=== PATIENT | male | born 1940 | race Caucasian/White ===

== ENCOUNTER 2023-03-13 09:25 | Emergency (ER) | payer MEDICARE, OTHER ==
[~2023-03-13] VITALS: Ht 175.3 cm; Wt 93.0 kg
[2023-03-13] MEDS ORDERED: ELIQUIS2.5 MG PO (09:43)
[2023-03-13 10:52] LABS: INFLUENZA B NAA NEGATIVE (NEGATIVE); RESPIRATORY SYNCYTIAL VIR NAA NEGATIVE (NEGATIVE)
[2023-03-13 11:26] LABS: BASOPHILS 0.3 % (0-2); EOSINOPHILS 0.5 % (0-6); HEMATOCRIT 39.9 % (35.0-50.0); LYMPHOCYTES 17.1 % (24-44); MCH 32.4 (27-36); MCHC 32.7 g/dl (30-36); MCV 99.1 fl (81-99); MONOCYTES 7.2 % (0-12); NEUTROPHILS 74.9 % (39-80); PLATELET COUNT 134 K/uL (140-440); RBC 4.02 M/ul (4.3-5.7)
[2023-03-13 11:35] LABS: ANION GAP 14.1 (7-21); BUN/CREATININE RATIO 17.97 (6.0-28.6); CREATININE, SERUM 0.89 mg/dL (0.70-1.30); POTASSIUM 4.1 mmol/L (3.5-5.1)
[2023-03-13] MEDS ORDERED: PAXLOVID 300-11 EACH PO (12:28)
[2023-03-13 12:45] VITALS: BP 148/67
== END 2023-03-13 12:53 | disposition home or self-care (01) ==
LOC: ED 09:25
PROVIDERS: Emergency Medicine
DX: U07.1 COVID-19 (principal); I10 Essential (primary) hypertension; Z79.01 Long term (current) use of anticoagulants; Z91.048 Other nonmedicinal substance allergy status
CPT/HCPCS: 36415; 80048; 85025; 87502; 99283; C9803; U0002

== ENCOUNTER 2023-03-27 12:48 | Emergency (ER) | payer OTHER, MEDICARE ==
[~2023-03-27] VITALS: Ht 175.3 cm; Wt 93.0 kg
[~2023-03-27 12:48] MED LIST: ELIQUIS2.5 MG PO; PAXLOVID 300-11 EACH PO
--- OUTSIDE RECORDS SUMMARY | 2023-03-27 12:57 | XMS ---
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 Tani has no Care Guidelines for this patient. Radha V[facility] COUNT (12 MO.) [facility] 2 NOTE: Visits indicate total known visits. ED/C VISIT TRACKING (12 MO.) [facility] [place] [facility] COMPLAINT: - CHEST PAIN, HEAVY COUGH 03/13/2023 09:26 [facility] [place] TYPE: Emergency COMPLAINT: - FLU SYMPTOMS DIAGNOSES: - COVID-19 - Essential (primary) hypertension - termite control representative (current) use of anticoagulants - Other malaise - Other nonmedicinal substance allergy status INPATIENT VISIT TRACKING (12 MO.) No inpatient visits to display in this time frame [email or web address]
[2023-03-27] MEDS ORDERED: VENTOLIN HFA18 GM INH (14:26)
[2023-03-27 14:36] VITALS: BP 106/52
--- NOTE | 2023-03-27 23:03 | EKG ---
[facility] [address] [facility] [place] [address] Signed Sinus rhythm with 1st degree AV block Right bundle branch block Left anterior fascicular block Bifascicular block Minimal voltage criteria for LVH, may be normal variant ( R in aVL ) Abnormal ECG No previous ECGs available Confirmed by Nina Palacio MD () on 03/27/2023 11:03:18 PM Electronically Signed By: NINA PALACIO MD 03/27/23 2303 PATIENT NAME: CASIE NUÑEZ Electrocardiogram DATE OF : 36 PHYSICIAN: NINA PALACIO MD REPORT #: [id number] REPORT IS CONFIDENTIAL AND NOT TO BE RELEASED WITHOUT AUTHORIZATION
== END 2023-03-27 14:30 | disposition home or self-care (01) ==
LOC: ED 12:48
DX: U07.1 COVID-19 (principal); J40 Bronchitis, not specified as acute or chronic; I10 Essential (primary) hypertension; Z91.048 Other nonmedicinal substance allergy status; Z79.899 Other long term (current) drug therapy; Z79.01 Long term (current) use of anticoagulants
CPT/HCPCS: 93005; 93010; 94640; 94664; 99284-25

== ENCOUNTER 2024-02-13 00:20 | Inpatient (IN) | payer OTHER, MEDICARE ==
[2024-02-13] VITALS (15 sets, daily range): BP systolic 102–180; BP diastolic 49–96
[~2024-02-13] VITALS: Ht 175.3 cm; Wt 83.6 kg
[~2024-02-13 00:20] MED LIST changes: -ELIQUIS2.5 MG PO; +ELIQUIS5 MG PO; +VENTOLIN HFA18 GM INH
[2024-02-13] MEDS ORDERED: ondansetron HCL 4 MG/2 ML VIAL IV ONE (00:45)
[2024-02-13 00:46] LABS: BASOPHILS 0.2 % (0-2); EOSINOPHILS 0.9 % (0-6); HEMATOCRIT 41.4 % (35.0-50.0); HEMOGLOBIN 13.7 g/dL (12.0-18.0); LYMPHOCYTES 15.1 % (24-44); MCH 32.2 (27-36); MCHC 33.1 g/dl (30-36); MCV 97.3 fl (81-99); MONOCYTES 3.2 % (0-12); NEUTROPHILS 80.6 % (39-80); PLATELET COUNT 183 K/uL (140-440); RBC 4.25 M/ul (4.3-5.7); RDW 13.8 (10.5-15.0)
[2024-02-13] MEDS ORDERED: MELATONIN5 M2 PO (00:58)
[2024-02-13] MEDS ORDERED: MEMANTINE HCL10 MG PO (00:58)
[2024-02-13 01:00] LABS: ALBUMIN 4.2 g/dL (3.4-5.0); ALBUMIN/GLOBULIN RATIO 1.5 (1.1-2.4); ANION GAP 13.9 (7-21); BILIRUBIN, TOTAL 0.6 ng/dL (0.2-1.0); BUN/CREATININE RATIO 12.62 (6.0-28.6); CALCIUM 9.7 mg/dL (8.5-10.1); CREATININE, SERUM 1.03 mg/dL (0.70-1.30); POTASSIUM 3.9 mmol/L (3.5-5.1)
[2024-02-13] MEDS ORDERED: HYDROmorphone HCL 1 MG/ML SYR IV PRN ×3 (01:00→20:00)
[2024-02-13] MEDS ORDERED: VITAMIN B650 MG PO (01:09)
[2024-02-13] MEDS ORDERED: FISH OIL 1,001000 MG PO (01:11)
[2024-02-13] MEDS ORDERED: CALCIUM-MAGNES1 EAC4 PO (01:13)
[2024-02-13] MEDS ORDERED: FLONASE ALLERG9.9 ML NAS (01:14)
[2024-02-13] MEDS ORDERED: VENTOLIN HFA18 GM (01:15)
[2024-02-13] MEDS ORDERED: SERTRALINE HCL100 MG PO (01:15)
[2024-02-13] MEDS ORDERED: METOPROLOL TART25 MG PO (01:16)
[2024-02-13] MEDS ORDERED: OMEPRAZOLE20 MG PO (01:16)
[2024-02-13] MEDS ORDERED: LOVASTATIN40 MG PO (01:17)
[2024-02-13] MEDS ORDERED: FOLIC ACID1 MG PO (01:18)
[2024-02-13] MEDS ORDERED: CLONIDINE HCL0.1 MG PO (01:19)
[2024-02-13] MEDS ORDERED: DAPSONE25 MG PO (01:19)
[2024-02-13] MEDS ORDERED: LUBRICANT EYE D15 M3 OP (01:20)
[2024-02-13] MEDS ORDERED: AMLODIPINE-BEN1 EACH PO (01:21)
[2024-02-13] MEDS ORDERED: MULTI VITAMIN1 EACH PO (01:22)
[2024-02-13] MEDS ORDERED: FUROSEMIDE20 MG PO (01:23)
[2024-02-13] MEDS ORDERED: TERAZOSIN HCL10 MG PO (01:23)
[2024-02-13] MEDS ORDERED: XALATAN2.5 ML OPTH (01:24)
[2024-02-13] MEDS ORDERED: ACETAMINOPHEN500 MG PO (01:26)
[2024-02-13] MEDS ORDERED: CHLORPHENIRAMINE4 MG PO (01:26)
[2024-02-13] MEDS ORDERED: SUCRALFATE1 GM/10 ML PO (01:27)
[2024-02-13] MEDS ORDERED: REFRESH PLUS1 EACH OPTH (01:28)
[2024-02-13] MEDS ORDERED: MINERIN LOTION473 ML (01:31)
[2024-02-13] MEDS ORDERED: FLUOCINONIDE15 G1 TOP (01:31)
[2024-02-13] MEDS ORDERED: PREVAGEN (01:35)
[2024-02-13 02:03] LABS: BILIRUBIN, URINE NEGATIVE (negative); BLOOD/HGB, URINE NEGATIVE (Negative); KETONE, URINE NEGATIVE (Negative); LEUK ESTERASE, URINE NEGATIVE (negative); NITRITE, URINE NEGATIVE (negative); PH, URINE 6.5 (5-7)
[2024-02-13] MEDS ORDERED: LACTATED RINGER'S 1,000 ML IV ONE (02:15)
[2024-02-13] MEDS ORDERED: ondansetron HCL 4 MG/2 ML VIAL IV PRN ×2 (02:30→20:00)
[2024-02-13] MEDS ORDERED: LACTATED RINGER'S 1,000 ML IV SCH ×2 (02:30→14:45)
[2024-02-13 02:39] LABS: PARTIAL THROMBOPLASTIN TIME 29.3 Sec (22.9-41.3)
[2024-02-13 02:40] LABS: INR 1.14 (0.80-1.30); PROTIME 13.9 Sec (11.2-14.2)
--- NOTE | 2024-02-13 03:20 | NUR ---
PATIENT ARRIVED TO FLOOR BY BELT MAKER. PATIENT SCOOTED FROM STRETCHER TO BED INDEPENDENTLY. VS OBTAINED AND RECORDED. ASSESSMENT COMPLETE. SMALL SCAB AND BRUISE NOTED ON RIGHT FOREARM. PATIENT A&O x4. IV FLUSHES WNL. BED ALARM ON FOR SAFETY. PATIENT EDUCATED TO ROOM AND CALL LIGHT. PATIENT VERBILIZED UNDERSTANDING. PATIENT HAS NO FURTHER NEEDS. CALL LIGHT IN REACH.
--- NOTE | 2024-02-13 04:15 | NUR ---
NEW BAG IV FLUID INFUSING PER ORDER. PATIENT HAS NO FURTHER NEEDS. CALL LIGHT IN REACH.
--- NOTE | 2024-02-13 05:28 | NUR ---
CALL LIGHT ANSWERED. PATIENT UP TO BSC TO VOID YELLOW URINE WITH SBA. PATIENT BACK TO BED. VS AND I&Os OBTAINED AND RECORDED. PATIENT DOES NOT REPORT PAIN AT THIS TIME. NG TUBE SET TO LIWS. PATIENT HAS NO FURTHER NEEDS. BED ALARM ON FOR SAFETY. CALL LIGHT IN REACH.
--- NOTE | 2024-02-13 06:19 | NUR ---
PT UTILIZES CALL LIGHT, REPORTS BEING VERY COLD, SWEATY, AND HAVING L SIDED CHEST PAIN. PT UNABLE TO CHARACTERIZE PAIN. STATES HE HAS NEVER FELT PAIN LIKE THIS. PRIMARY RN NOTIFIED. VS OBTAINED. PRN DILAUDID ADMINISTERED. SEE JEFFERY REES NOTIFIED BY PRIMARY RN.
--- NOTE | 2024-02-13 06:25 | NUR ---
PATIENT REPORTS 8/10 CHEST PAIN, IS DIAPHORETIC, AND HAS ELEVATED SYSTOLIC BP. CALL PLACED TO MD STAFFORD REGARDING PATIENT STATUS. MD STAFFORD SAID TO CONSULT HOSPITALIST. CALL PLACED TO MD VALLES REGARDING PATIENT AND HIS STATUS. NEW ORDERS RECIEVED BY DR VALLES. ORDERS VERIFIED USING REPEAT BACH METHOD.
[2024-02-13] MEDS ORDERED: NITROGLYCERIN 0.4 MG SUBL SL ONE ×2 (06:30→08:15)
--- NOTE | 2024-02-13 06:57 | NUR ---
SCHEDULED MEDICATION ADMINISTERED. MD VALLES IN ROOM.
[2024-02-13] MEDS ORDERED: ALBUTEROL SULFATE 0.083% 3 ML VIAL INH PRN (07:00)
--- NOTE | 2024-02-13 07:39 | NUR ---
RECEIVED REPORT FROM NOC NURSE. PT IS A/O, RESPIRATIONS EVEN AND REGULAR. PT DENIES CP ATT. TELE IN PLACE. IV FLUIDS RUNNING. CALL LIGHT WITHIN REACH.
--- NOTE | 2024-02-13 08:25 | NUR ---
PT C/O CP. DR STAFFORD AT BEDSIDE. PT RATES CP 4/10, DESCRIBES MIDSTERNAL PRESSURE THAT RADIATES TO HIS BACK. REPORTS HX OF THIS TYPE OF CP AND HAS SEEN OUTSIDE PROVIDER FOR THE ISSUE. PT IS NONDIAPHORETIC. BP 177/92, HR 106. PT IS A/O, RESPIRATIONS EVEN AND REGULAR. MD NOTIFIED BY CHARGE NURSE. NITRO SL 0.4MG ORDERED AND ADMINISTERED. PT HAS NOT HAD RELIEF OF CP ATT.
[2024-02-13] MEDS ORDERED: FAMOTIDINE 20 MG/ 2 ML VIAL IV SCH (09:00)
[2024-02-13] MEDS ORDERED: NITROGLYCERIN 0.4 MG SUBL SL PRN (10:30)
--- NOTE | 2024-02-13 11:14 | NUR ---
rounded on pt. pt is a/o, respirations even and regular. visitor at bedside. pt iv fluids running. pt states he is wanting to eat. reminded pt he will be npo today. pt denies pain or any needs att.
--- NOTE | 2024-02-13 11:25 | CONS ---
[facility] [address] [place], [place] [address] Signed DATE OF CONSULTATION: 02/13/2024 CHIEF COMPLAINT: Nausea and vomiting. HISTORY OF PRESENT ILLNESS: Casie is an 83-year-old gentleman originally from [place]. He spent a little over 19 years in the [place]. About two years ago, he actually his Yee and they moved out here to [place], [place]. He had gone up to the [facility] in [place], [place] initially. He has now established with a local family physician, Dr. Thomas. [facility] had [facility] as well as the last progress note from Dr. Thomas as well as the ER paperwork. He says he has had a right inguinal hernia probably a year or maybe a little longer. He was having lower abdominal pain yesterday particularly on the right side and he noticed pain and swelling and a tender area in the right groin. He had repeat projectile vomiting and finally came to the emergency room. In the emergency room, his vital signs were stable. His white count was unremarkable. His initial troponin was only 42. The rest of his labs were fine. EKG showed sinus rhythm. Currently, he is in sinus tachycardia. He got a chest x-ray, which was unremarkable. The CT scan showed some mild to moderate air fluid levels in the small bowel with some fecalization in the distal small bowel and it looks like maybe that small bowel was involved in that right inguinal hernia with a possible transition point. Therefore, I was asked in the middle of night to admit him as a local general surgeon on-call. He had been doing well until early this morning when he told the nurse he was diaphoretic and having 8/10 chest pain. We had our hospitalist, Dr. Rosario, come see the patient. It responded very quickly to sublingual nitroglycerin. EKG in his physical exam shows him to be in sinus tachycardia. I tracked down his echocardiogram from October of 2023, and it is actually normal with a left ventricular ejection fraction of 60% as well as the other parameters. Now couple hours later, he was complaining that his chest pain was returning. He just received a 2nd nitroglycerin from our nurse. We are awaiting serial troponin levels and he is now on telemetry as well. He tells me that the pain and hard lump in his right groin has gone. He said now it is more like a sponge. PAST MEDICAL HISTORY: Hypertension, obstructive sleep apnea with CPAP, paroxysmal atrial fibrillation, PTSD, depression, skin cancer, gastroesophageal reflux disease, celiac disease, generalized osteoarthritis, and neck pain. PAST SURGICAL HISTORY: Includes an open appendectomy for ruptured appendix at age 78 as well as tonsillectomy and adenoidectomy. SOCIAL HISTORY: Electronically Signed By: BART STAFFORD MD 02/13/24 1125 PATIENT NAME: CASIE NUÑEZ CONSULTATION DATE OF : 36 REPORT #: [id number] PHYSICIAN: BART STAFFORD MD PCP: JASPREET THOMAS MD REPORT IS CONFIDENTIAL AND NOT TO BE RELEASED WITHOUT AUTHORIZATION [address] [address] Signed He does not smoke or drink. Dr. Jaspreet Thomas is his local primary care provider. He also sees Dr. Chriss Lerma at the [facility] in [place], [place]. He prefers the [facility] pharmacy here in [place], [place]. He is to his Yee about two years now at [phone]. He is originally from [place] and spent his career in the [employer]. FAMILY HISTORY: His mom had heart disease. REVIEW OF SYSTEMS: He had 10 systems reviewed and he tells me he has had chest pain in the past along with acid reflux, but he has never had myocardial infarction. ALLERGIES: Adhesive tape causes a rash. MEDICATIONS: 1. Fluocinonide ointment. 2. lotion. 3. Prevagen. 4. Chlorpheniramine. 5. Tylenol. 6. Sucralfate. 7. Refresh Plus. 8. Also lubricant eye drops. 9. Amlodipine. 10. Terazosin. 11. Lasix. 12. Xalatan eye drops. 13. Albuterol. 14. Eliquis. 15. Memantine. 16. Melatonin. 17. Vitamin B6. 18. Fish oil. 19. Multivitamin. 20. Flonase. 21. Sertraline. 22. Omeprazole. 23. Metoprolol. 24. Lovastatin. 25. Folic acid. 26. Dapsone. 27. Clonidine. Electronically Signed By: BART STAFFORD MD 02/13/24 1125 PATIENT NAME: CASIE NUÑEZ CONSULTATION DATE OF : 36 REPORT #: [id number] PHYSICIAN: BART STAFFORD MD PCP: JASPREET THOMAS MD REPORT IS CONFIDENTIAL AND NOT TO BE RELEASED WITHOUT AUTHORIZATION [facility] [address] [place], [place] [address] Signed PHYSICAL EXAMINATION: VITAL SIGNS: His blood pressure was high at 196/74, it is down to about 131/41. His heart rate was about 66, it is up to 115 and sinus tachycardia. His respiratory rate has varied between 14 and 19. His temperature is right around 98.0. His O2 sats have been 90% to 98%. He is 5 feet 9 inches tall at 83 kg with a body mass index of 27. GENERAL: Casie is an 83-year-old gentleman lying supine semi-recumbent in his hospital bed with our nurse, Crystal at the bedside. Our respiratory therapist, Frederick has also been in and out of the room. He does not appear to be in any acute distress. He is not diaphoretic currently. His NG tubes in place. He is very cooperative and fairly knowledgeable as well. LUNGS: Clear to auscultation bilaterally. HEART: Sinus tach. There is no murmur. ABDOMEN: Soft, flat, and nontender. I did check both inguinal canals. He appears to have a hernia on the right, but it is reduced. The left is unremarkable. Both testicles are descended and unremarkable. LABORATORY DATA: His white blood cell count is 11.7, hemoglobin 13, neutrophils 80, platelets 183. Creatinine 1.0. Troponin initially is 42. INR is 1.1. His liver function tests are negative. His albumin is 4.2. His lipase is 49. His urinalysis is negative. EKG just showed sinus tachycardia. An echocardiogram from October of 2023, read by Dr. Deng is essentially normal and has a left ventricular ejection fraction of 60%. RADIOGRAPHIC STUDIES: He has had three chest x-rays and they were all unremarkable. He now has an NG tube in his proximal stomach. CT scan of the abdomen and pelvis is reviewed as well and it shows the small bowel air-fluid levels with some distal fecalization and probably some small bowel in that right inguinal hernia, most likely a transition point. ASSESSMENT AND PLAN: Casie is an 83-year-old gentleman, who likely has had a small bowel obstruction from his right inguinal hernia, although it seems to be reduced currently. He has an NG tube in place and some IV fluids started. He has been complaining of chest pain and diaphoresis and it responded very nicely to his nitroglycerin sublingual. At this point, we are going to treat him conservatively. We are going to let our hospitalist service proceed with his heart evaluation. We have no field laboratory operator at our small critical access hospital. He may need transfer to a higher level of care. I have reviewed this with Casie, his nurse, the respiratory therapist and our hospitalist, Dr. Rosario. He has expressed understanding and agrees with the above plan. Electronically Signed By: BART STAFFORD MD 02/13/24 1125 PATIENT NAME: CASIE NUÑEZ CONSULTATION DATE OF : 36 REPORT #: [id number] PHYSICIAN: BART STAFFORD MD PCP: JASPREET THOMSA MD REPORT IS CONFIDENTIAL AND NOT TO BE RELEASED WITHOUT AUTHORIZATION [address] [address] Signed MD HOMERO Avila/MIKL /[id number] cc: MD Chriss Underwood MD Andrew L Bower, MD Copies: JASPREET THOMAS MD, TIMOTHY MD BOWER, ANDREW L MD ~ Electronically Signed By: BART STAFFORD MD 02/13/24 1125 PATIENT NAME: CASIE NUÑEZ CONSULTATION DATE OF : 36 REPORT #: [id number] PHYSICIAN: BART STAFFORD MD PCP: JASPREET THOMAS MD REPORT IS CONFIDENTIAL AND NOT TO BE RELEASED WITHOUT AUTHORIZATION
--- NOTE | 2024-02-13 11:43 | NUR ---
DID HRLY ROUNDING ON PT. HE WAS SITTING UP IN BED ON HIS IPAD. PT DIDNT NEED ANYTHING ELSE CALL LIGHT IS WITHIN REACH.
--- NOTE | 2024-02-13 12:04 | NUR ---
rounded on pt. pt is sitting up in bed a/o, respirations even and regular. denies needs att.
[2024-02-13] MEDS ORDERED: METOPROLOL TARTRATE 5 MG/5 ML VIAL IV SCH (14:00)
--- NOTE | 2024-02-13 15:20 | NUR ---
ROUNDED ON PT. PT IS A/O, RESPIRATIONS EVEN AND REGULAR. IV FLUIDS RUNNING. PT DENIES NEEDS ATT. CALL LIGHT WITHIN REACH.
--- NOTE | 2024-02-13 17:08 | NUR ---
rounded on pt. pt appears to be sleeping comfortably. respirations even and regular. iv fluids running. call light within reach.
--- NOTE | 2024-02-13 18:00 | NUR ---
ROUNDED ON PT. PT IS A/O, RESPIRATIONS EVEN AND REGULAR. IV FLUIDS RUNNING. NG TUBE TO SUCTION. HAS HAD MINIMAL NG OUTPUT TODAY. PT C/O CARRANZA. CHARGE NURSE REQUESTING MEDICATION FOR CARRANZA. PT DENIES CP. READJUSTED PT IN BED AND ASSISTED WITH WIFI CONNECTION TO TABLET. PT DENIES ANY OTHER NEEDS ATT. CALL LIGHT WITHIN REACH. AT BEDSIDE.
[2024-02-13] MEDS ORDERED: ACETAMINOPHEN 1,000 MG/100 ML VIAL IV PRN (18:30)
--- NOTE | 2024-02-13 19:25 | NUR ---
in to assist pt up to the bsc/urinal, sba pivot, back to bed, vs checked, reported to the RN, no further needs
--- NOTE | 2024-02-13 19:33 | NUR ---
REPORT RECEIVED FROM DAY SHIFT RN. PT LYING IN BED ALERT AND ORIENTED. DENIES NEEDS. WHITE BOARD UPDATED. CALL LIGHT IN REACH.
--- NOTE | 2024-02-13 19:58 | NUR ---
PT C/O NAUSEA. NO PRN'S AVAILABLE. CALLED. NEW TELEPHONE ORDERS RECEIVED VERIFIED WITH READBACK METHOD. ALSO DISCUSSED PT BLOOD PRESSURE. SUGGESTED TALKING TO HOSPITALIST. HOSPITALIST ON THE FLOOR AND UPDATED ON PT BP. NEW ORDERS RECEIVED.
[2024-02-13] MEDS ORDERED: ALBUTEROL/IPRATROPIUM 3 ML NEB INH SCH (20:00)
[2024-02-13] MEDS ORDERED: PROCHLORPERAZINE EDISYLATE 10 MG/2 ML VIAL IV PRN (20:00)
[2024-02-13] MEDS ORDERED: hydrALAZINE HCL 20 MG/ML VIAL IV PRN (20:15)
--- NOTE | 2024-02-13 20:44 | NUR ---
EVENING ASSESSMENT COMPLETE. SCHEDULED MEDS ADMIN PER EMAR. PT REPORTS HEADACHE 3/10 AND NAUSEA. PRN FOR PAIN AND N/V ADMIN. CLONIDINE PATCH PLACED TO LEFT SHOULDER. NGT TO LIWS WITH CLEAR DRAINAGE. BOWEL TONES ACTIVE. PT REPORTS FLATUS AND SMALL "WATERY" BM. ABD SOFT. 2L/NC PLACED PT UNABLE TO WEAR HOME CPAP DUE TO NGT. ASSISTED PT TO REPOSITION. PT DENIES QUESTIONS OR CONCERNS. CALL LIGHT IN REACH.
--- NOTE | 2024-02-13 22:58 | NUR ---
PT RESTING IN BED WITH EYES CLOSED. RESPIRATIONS EVEN. HOB ELEVATED. CALL LIGHT IN REACH.
[2024-02-14] VITALS (8 sets, daily range): BP systolic 156–175; BP diastolic 60–71
--- NOTE | 2024-02-14 01:30 | NUR ---
IV PUMP ALARMING. NEW BAG IVF INFUSING PER ORDER. IV SITE WNL. UP TO BSC TO VOID AND PASS GAS. BACK TO BED, DONALDO WELL. GAIT STEADY. NGT TO LIWS WITH CLEAR DRAINAGE. BOWEL TONES ACTIVE. ABD SOFT. VS OBTAINED. SCHEDULED MEDS ADMIN PER EMAR. NO FURTHER NEEDS. CALL LIGHT IN REACH.
--- NOTE | 2024-02-14 03:36 | NUR ---
CALL LIGHT ANSWERED. NGT SECUREMENT DEVICE SLIPPING. SECUREMENT DEVICE REPLACED. NGT PATENT WITH SMALL AMOUNT CLEAR DRAINAGE. HOB ELEVATED 30 DEGREES. NO FURTHER NEEDS.
[2024-02-14 05:30] LABS: BASOPHILS 0.3 % (0-2); EOSINOPHILS 0.6 % (0-6); HEMATOCRIT 34.5 % (35.0-50.0); HEMOGLOBIN 11.6 g/dL (12.0-18.0); MCH 32.7 (27-36); MCHC 33.8 g/dl (30-36); MCV 96.9 fl (81-99); NEUTROPHILS 66.1 % (39-80); PLATELET COUNT 151 K/uL (140-440); RBC 3.56 M/ul (4.3-5.7); RDW 13.9 (10.5-15.0)
[2024-02-14 05:46] LABS: ALBUMIN 3.1 g/dL (3.4-5.0); ALBUMIN/GLOBULIN RATIO 1.29 (1.1-2.4); ANION GAP 9.6 (7-21); BILIRUBIN, TOTAL 0.6 ng/dL (0.2-1.0); BUN/CREATININE RATIO 16.66 (6.0-28.6); CALCIUM 8.8 mg/dL (8.5-10.1); CREATININE, SERUM 0.9 mg/dL (0.70-1.30); POTASSIUM 3.6 mmol/L (3.5-5.1); PROTEIN, TOTAL 5.5 g/dL (6.4-8.2)
[2024-02-14 05:47] LABS: MAGNESIUM 1.9 mg/dL (1.8-2.4); PHOSPHORUS, INORGANIC 3.2 mg/dL (2.5-4.9)
--- NOTE | 2024-02-14 05:58 | NUR ---
PT AWAKE IN BED. OXYGEN REMOVED AT THIS TIME PER PT REQUEST. PT DENIES PAIN OR NAUSEA. NGT PATENT WITH CLEAR DRAINAGE. PT DENIES NEEDS. CALL LIGHT IN REACH.
--- NOTE | 2024-02-14 07:03 | NUR ---
Pt report received from JUAN Gamino. Pt is resting with eyes closed, supine, in bed. Breathing is regular, even, and non-labored. Side rails up, call light in reach. NGT to LIWS, IVF at rate of 100ml/hr. White board updated.
[2024-02-14] MEDS ORDERED: ondansetron HCL 4 MG/2 ML VIAL IV PRN (08:00)
[2024-02-14] MEDS ORDERED: HYDROmorphone HCL 1 MG/ML SYR IV PRN (08:00)
[2024-02-14] MEDS ORDERED: DEXTROSE 5% - LACTATED RINGERS 1,000 ML IV SCH (08:00)
[2024-02-14] MEDS ORDERED: OXYCODONE HCL 5 MG TAB PO PRN (08:00)
[2024-02-14] MEDS ORDERED: ACETAMINOPHEN 500 MG TAB PO PRN (08:00)
[2024-02-14] MEDS ORDERED: PROCHLORPERAZINE EDISYLATE 10 MG/2 ML VIAL IV PRN (08:00)
--- NOTE | 2024-02-14 08:02 | NUR ---
PT UP TO BSC W/SBA. AM CARE COMPLETED, PT VOIDED WITH GAS. PT BACK TO BED, HAS NO OTHER REQUESTS AT THIS TIME, PT IS NPO, AND THE CALL LIGHT IS IN REACH.
[2024-02-14] MEDS ORDERED: cloNIDine HCL 0.1 MG TAB PO SCH (09:00)
[2024-02-14] MEDS ORDERED: METOPROLOL TARTRATE 25 MG TAB PO SCH (09:00)
[2024-02-14] MEDS ORDERED: PANTOPRAZOLE SODIUM 40 MG TABEC PO SCH (09:00)
--- NOTE | 2024-02-14 09:35 | NUR ---
PATIENT NGT IS PLUGGED. PATIENT IS UP TO BATHROOM TO WITH SBA. WALKER IN ROOM, PATIENT USES A CANE AT BASELINE AND IS SLIGHTLY UNSTEADY ON HIS FEET.
--- NOTE | 2024-02-14 10:57 | NUR ---
PATIENT TO BR W/SBA. PATIENT BACK INTO CHAIR VISITING WITH . CALL LIGHT WITHIN REACH.
--- NOTE | 2024-02-14 11:28 | NUR ---
IN ROOM TO ASSESS IV PUMP, NEW BAG OF IV FLUIDS STARTED, SEE EMAR. PATIENT SITTING IN CHAIR WITH FAMILY AT THE CHAIRSIDE. PATIENT DENIES ADDITIONAL NEEDS AT THIS TIME. CALL LIGHT IN REACH.
--- NOTE | 2024-02-14 11:34 | NUR ---
MED REC COMPLETE
--- NOTE | 2024-02-14 13:04 | NUR ---
PATIENT BACK TO BED FROM CHAIR, SBA REQUIRED. VITALS AND I/O'S COMPLETED AND DOCUMENTED. NG CLAMP STILL IN PLACE. PT ASKED FOR THE BLINDS DRAWN AND HIS IPAD. PT HAS NO OTHER REQUESTS AT THIS TIME. CALL LIGHT WITHIN REACH.
--- NOTE | 2024-02-14 15:50 | NUR ---
PT IS ASLEEP IN BED, SUPINE, WITH THE BLANKETS PULLED UP TO BELOW HIS EYES. BREATHING IS REGULAR, EVEN, AND NON-LABORED. LIGHTS ARE OFF. CALL LIGHT IS IN REACH.
--- NOTE | 2024-02-14 16:55 | NUR ---
In with pt for hourly rounding. Pt is resting supine in bed, awake. Pt requests something for his headache pain and was provided with tylenol per emar. Pt up to have a small BM and pass gas (formed, rabbit pellet sized stool). Waffle overlay placed on pt's bed. Pt back to bed, side rails up x4, call light in reach. Pt denies further needs at this time.
--- NOTE | 2024-02-14 18:44 | NUR ---
PATIENT BACK TO BED AFTER USING THE BR, NG INTACT, AND THE PT HAS NO OTHER REQUESTS AT THIS TIME. CALL LIGHT WITHIN REACH.
--- NOTE | 2024-02-14 19:30 | NUR ---
REPORT RECEIVED FROM DAY SHIFT RN. PT LYING IN BED ALERT AND ORIENTED. DENIES NEEDS. WHITE BOARD UPDATED. CALL LIGHT IN REACH.
--- NOTE | 2024-02-14 20:21 | NUR ---
PT UTILIZES CALL LIGHT, REQUESTS TO USE THE BATHROOM. PT UP TO BR AND BACK TO BED WITH 1 PA. TOLERATED WELL. VS OBTAINED. WNL. PT DENIES FURTHER NEEDS AT THIS TIME. CALL LIGHT IN REACH.
--- NOTE | 2024-02-14 20:59 | NUR ---
EVENING ASSESSMENT COMPLETE. SCHEDULED MEDS ADMIN PER EMAR WITH SIPS OF WATER. PT DENIES PAIN OR NAUSEA. NGT CLAMPED. BOWEL TONES ACTIVE. PT REPORTS FLATUS AND BM. ABD SOFT. 2L/NC PLACED FOR NOC PT UNABLE TO WEAR HOME CPAP. HOB ELEVATED. SCD'S IN PLACE. WARM BLANKET PROVIDED. PT DENIES QUESTIONS OR CONCERNS. CALL LIGHT IN REACH.
--- NOTE | 2024-02-14 23:00 | NUR ---
CALL LIGHT ANSWERED. SBA. PATIENT USED THE BATHROOM VOIDED UNMEASURED. PATIENT IS BACK IN BED. SCD'S BACK ON. NO FURTHENR NEEDS AT THIS TIME.
[2024-02-15] VITALS (10 sets, daily range): BP systolic 140–168; BP diastolic 49–72
--- NOTE | 2024-02-15 00:59 | NUR ---
PT RESTING IN BED WITH EYES CLOSED. RESPIRATIONS EVEN. CALL LIGHT IN REACH.
--- NOTE | 2024-02-15 01:11 | NUR ---
SBA TO THE BATHROOM AND BACK TO BED. VOIDED 400ML YELLOW URINE. SCD'S BACK ON. PRIMARY RN AND THIS BIBLICAL STUDIES PROFESSOR IN THE ROOM. V/S COMPLETED. CHANGED TELE BATTERY.
--- NOTE | 2024-02-15 01:15 | NUR ---
PT UP TO BR WITH MANAGER SUSTAINABILITY ASSIST. IN BED AT THIS TIME. VS OBTAINED. ABD ASSESSMENT UNCHANGED. PT REPORTS FLATUS. DENIES PAIN OR NAUSEA. NGT REMAINS CLAMPED. PT DENIES NEEDS. CALL LIGHT IN REACH.
--- NOTE | 2024-02-15 03:50 | NUR ---
CALL LIGHT ANSWERED. PT UP TO BR WITH SBA TO VOID. BACK TO BED, DONALDO WELL. NO FURTHER NEEDS.
--- NOTE | 2024-02-15 05:28 | NUR ---
LAB IN ROOM FOR MORNING DRAW. VS AND I&O OBTAINED. PT DENIES PAIN OR NAUSEA. NO NEEDS AT THIS TIME. CALL LIGHT IN REACH.
[2024-02-15 05:29] LABS: BASOPHILS 0.4 % (0-2); EOSINOPHILS 2.3 % (0-6); HEMATOCRIT 34.3 % (35.0-50.0); HEMOGLOBIN 11.6 g/dL (12.0-18.0); LYMPHOCYTES 30.5 % (24-44); MCH 32.6 (27-36); MCHC 33.8 g/dl (30-36); MCV 96.6 fl (81-99); MONOCYTES 7.5 % (0-12); NEUTROPHILS 59.3 % (39-80); PLATELET COUNT 143 K/uL (140-440); RBC 3.55 M/ul (4.3-5.7); RDW 13.5 (10.5-15.0)
[2024-02-15 05:48] LABS: ANION GAP 6.6 (7-21); BUN/CREATININE RATIO 13.15 (6.0-28.6); CALCIUM 8.8 mg/dL (8.5-10.1); CREATININE, SERUM 0.76 mg/dL (0.70-1.30); MAGNESIUM 1.9 mg/dL (1.8-2.4); PHOSPHORUS, INORGANIC 2.8 mg/dL (2.5-4.9); POTASSIUM 3.6 mmol/L (3.5-5.1)
--- NOTE | 2024-02-15 06:45 | NUR ---
NGT DC'D PER VERBAL ORDER VERIFIED WITH READBACK METHOD. PT DONALDO WELL. ICE WATER PROVIDED. NO FURTHER NEEDS.
--- NOTE | 2024-02-15 07:10 | NUR ---
Pt report received from JUAN Okeefe. Pt is awake, resting supine in bed, post NGT removal by Dr. Vincent this morning. Pt reports he feels much better with the NGT out, denies any pain anywhere, no nausea, denies any needs at this time. Assisted pt with changing the channel on the TV to [place], at his request. Side rails up, personal belongings and bedside table in reach, call light in reach.
--- NOTE | 2024-02-15 08:13 | NUR ---
UR CLINICAL REVIEW: [facility] INPT CRITERIA FOR SBO [facility] 02/14/24 @ 0755 ORDER MATCHES REG NO AUTH REQUIRED PER [facility]MEDICARE GUIDELINES DISCHARGE PENDING FURTHER EVAL FROM PT/OT AND SURGICAL OUTCOME 02/16/24
[2024-02-15] MEDS ORDERED: AMLODIPINE BESYLATE 5 MG TAB PO SCH (09:00)
--- NOTE | 2024-02-15 10:08 | NUR ---
PATIENT ALERT AND ORIENTED IN RECLINER. STATES HE LIVES IN HOUSE, NO STAIRS BECAUSE [facility] JUST ASSISTED HIM TO PUT IN A RAMP TO GET INSIDE. HE STATES HIS 'S DAUGHTER AND LIVE IN THE SAME HOUSE AND A SON LIVES ACROSS THE STREET. HAS A CPAP, WALKER, WALK-IN TUB AND GRAB RAILS AT HOME. STATES "I FEEL SAFE AT HOME." HE CONTINUES TO DRIVE AT BASELINE, BUT HAS ASSISTANCE FOR TIME OF DC TO HOME. DENIES ANY DIFFICULTY PAYING UTILITES. STATES FINANCIAL CONCERNS FOR GETTING FOOD OR MEDICATIONS EITHER. STATES HE CAN NOT THINK OF ANY NEEDS AT HOME AT THIS TIME BUT WILL NOTIFY STAFF WITH ANY CHANGES.
[2024-02-15] MEDS ORDERED: SERTRALINE HCL 100 MG TAB PO SCH (10:56)
--- NOTE | 2024-02-15 11:33 | EKG ---
[facility] [address] [place] [address] Signed Sinus tachycardia Right bundle branch block Left anterior fascicular block Bifascicular block Abnormal ECG When compared with ECG of 13-FEB-2024 01:04, (Unconfirmed) OR interval has decreased Vent. rate has increased BY 54 BPM Confirmed by Kumar Rosario MD ([id number]) on 02/15/2024 11:33:39 AM Electronically Signed By: KUMAR ROSARIO MD 02/15/24 1133 PATIENT NAME: CASIE NUÑEZ Electrocardiogram DATE OF : 36 PHYSICIAN: KUMAR ROSARIO MD REPORT #: [id number] REPORT IS CONFIDENTIAL AND NOT TO BE RELEASED WITHOUT AUTHORIZATION
--- NOTE | 2024-02-15 11:33 | EKG ---
[facility] [address] [facility] [place] [address] Signed Sinus rhythm with 1st degree AV block Right bundle branch block Left anterior fascicular block Bifascicular block Abnormal ECG When compared with ECG of 27-MAR-2023 12:56, No significant change was found Confirmed by Kumar Rosario MD ([id number]) on 02/15/2024 11:33:24 AM Electronically Signed By: KUMAR ROSARIO MD 02/15/24 1133 PATIENT NAME: CSAIE NUÑEZ Electrocardiogram DATE OF : 36 PHYSICIAN: KUMAR ROSARIO MD REPORT #: [id number] REPORT IS CONFIDENTIAL AND NOT TO BE RELEASED WITHOUT AUTHORIZATION
--- NOTE | 2024-02-15 11:56 | NUR ---
PT UP TO TOILET SBA FWW
--- NOTE | 2024-02-15 13:54 | NUR ---
PT WANTED TO SHOWER. SET UP THE SHOWER WRAPPED HIS IV. PT WALKED TO THE BATHROOM WITH THE WALKER WHILE I WAS STANDING BY. PT WAS AWARE TO PULL THE CORD IF HE NEED HELP OR NEEDED ANYTHING.
--- NOTE | 2024-02-15 14:39 | NUR ---
VISITED DURING SPIRITUAL CARE ROUNDS. PT APPEARED TO BE SLEEPING. DID NOT DISTURB. PROVIDED PRAYER.
[2024-02-15] MEDS ORDERED: HYPROMELLOSE 10 GM GEL..GRAM. OD PRN (16:30)
--- NOTE | 2024-02-15 17:21 | NUR ---
In with pt for hourly rounding. Pt is A&O sitting up in his chair, television on, in room. Reviewed dietary menu with patient and explained how to call the kitchen to make requests. Pt's dinner tray arrived at this time and I set it up for him. IVF running at ordered rate. IV Site is patent, flushes well. Call light in reach.
--- NOTE | 2024-02-15 18:48 | NUR ---
PATIENT UP TO BATHROOM AND BACK TO CHAIR, SBA CANE. VITALS AND I&O'S DONE AND CHARTED. CALL LIGHT IN REACH. NO FURTHER NEEDS AT THIS TIME.
--- NOTE | 2024-02-15 19:38 | NUR ---
REPORT RECEIVED FROM DAY SHIFT RN. PT SITTING IN RECLINER ALERT AND ORIENTED. DENIES NEEDS. WHITE BOARD UPDATED. CALL LIGHT IN REACH.
[2024-02-15] MEDS ORDERED: MEMANTINE HCL 5 MG TAB PO SCH (21:00)
[2024-02-15] MEDS ORDERED: DORZOLAMIDE HCL/TIMOLOL MALEAT 10 ML PLCT OU SCH (21:00)
[2024-02-15] MEDS ORDERED: LATANOPROST EYE DROPS OU SCH (21:00)
--- NOTE | 2024-02-15 21:41 | NUR ---
PT UP TO BR WITH FWW AND SBA TO VOID. BACK TO BED, DONALDO WELL. VS AND I&O OBTAINED. NOTIFIED OF PT VS. TELEPHONE ORDERS RECEIVED VERIFIED WITH READBACK METHOD TO HOLD PM DOSE OF METOPROLOL. EVENING ASSESSMENT COMPLETE. SCHEDULED MEDS ADMIN PER EMAR. PT DENIES PAIN OR NAUSEA. BOWEL TONES ACTIVE. PT REPORTS FLATUS. ABD SOFT. TELE #[address] SINUS LAUREN. HOME CPAP AT BEDSIDE WITH 2L OXYGEN BLED IN. IV IN RAC WITH LARGE BRUISE IN ELBOW. IV FLUSHED WNL, PT DENIES PAIN. IV DC'D WNL. TIP INTACT. NEW IV PLACED IN RFA WITH ONE ATTEMPT. PT DONALDO WELL. IVF INFUSING PER ORDER. SCD'S IN PLACE. PT DENIES QUESTIONS OR CONCERNS. CALL LIGHT IN REACH.
--- NOTE | 2024-02-15 23:58 | NUR ---
PT RESTING IN BED WITH EYES CLOSED. RESPIRATIONS EVEN. CALL LIGHT IN REACH.
[2024-02-16] VITALS (11 sets, daily range): BP systolic 134–153; BP diastolic 46–67
--- NOTE | 2024-02-16 00:42 | NUR ---
CALL LIGHT ANSWERED. PT UP TO BR WITH SBA TO VOID AND PASS GAS. BACK TO BED, DONALDO WELL. VS OBTAINED. PT DENIES PAIN OR NAUSEA. NO FURTHER NEEDS. CALL LIGHT IN REACH.
--- NOTE | 2024-02-16 03:14 | NUR ---
PT RESTING IN BED ON RIGHT SIDE. EYES CLOSED. RESPIRATIONS EVEN. SCD'S IN PLACE. HR MID 50'S ON TELE #7. PT WEARING HOME CPAP. CALL LIGHT IN REACH.
--- NOTE | 2024-02-16 06:13 | NUR ---
PT UP TO BR TO VOID AND PASS GAS WITH SBA. GAIT STEADY. BACK TO BED, DONALDO WELL. DENIES PAIN OR NAUSEA. VS AND I&O OBTAINED. ABD ASSESSMENT UNCHANGED. PT DENIES NEEDS. CALL LIGHT IN REACH.
[2024-02-16] MEDS ORDERED: CEFAZOLIN SODIUM 2 GM/20 ML SYR IV SCH (07:00)
--- NOTE | 2024-02-16 07:20 | NUR ---
SHIFT REPORT REC'D FROM JUAN TIMMONS. PT WITHOUT C/O AT THIS TIME
[2024-02-16] MEDS ORDERED: CYCLOBENZAPRINE10 MG PO (08:10)
[2024-02-16] MEDS ORDERED: GENTEAL SEVERE10 GM OD (08:13)
[2024-02-16] MEDS ORDERED: MULTIVITAMINS1 EAC6 PO (08:16)
[2024-02-16] MEDS ORDERED: PRAZOSIN HCL1 MG PO (08:17)
[2024-02-16] MEDS ORDERED: METOPROLOL TARTRATE 25 MG TAB PO SCH (09:00)
[2024-02-16] MEDS ORDERED: FOLIC ACID 1 MG TAB PO SCH (09:00)
--- NOTE | 2024-02-16 09:37 | NUR ---
PATIENT UP TO BATHROOM WITH 1PA TO VOID+BM. PATIENT BACK TO CHAIR, NO OTHER NEEDS AT THIS TIME.
[2024-02-16] MEDS ORDERED: VENTOLIN HFA18 GM INH (10:14)
[2024-02-16] MEDS ORDERED: CARBOXYMETHYLCE15 ML OU (10:15)
[2024-02-16] MEDS ORDERED: COSOPT EYE DROP10 ML OU (10:16)
--- NOTE | 2024-02-16 10:17 | NUR ---
MED REC COMPLETE
--- NOTE | 2024-02-16 10:24 | NUR ---
PATIENT SALINE LOCKED TO WORK WITH PHYSICAL THERAPY.
--- NOTE | 2024-02-16 11:30 | NUR ---
Spoke with Serafin. Discussed Dr. Vincent had stated concern he may need placement for therapy. Pt declines this and lets me know he lives with his , step daughter, and step son in law. They assist them and he has a very [facility]. He has already discussed OP therapy with PT and plans on completing PT with them. When he is closer to dc, I will [phone] to request auth from the [facility]. Form is printed and in pts slot for charts.
--- NOTE | 2024-02-16 13:03 | NUR ---
NEW BAG OF IVF INFUSING. PATIENT DENIES OTHER NEEDS.
--- NOTE | 2024-02-16 15:00 | NUR ---
PT SITTING UP IN CHAIR, NO C/O PAIN, N/V/D.
--- NOTE | 2024-02-16 15:24 | NUR ---
PATIENT IN BED AT THIS TIME. WELFARE WORKER ASSISTED PATIENT TO BATHROOM, WELFARE WORKER THEN ASSISTED PATIENT BACK TO CHAIR. CALL LIGHT WITHIN REACH, NO FURTHER NEEDS AT THIS TIME.
--- NOTE | 2024-02-16 17:54 | NUR ---
PT CARED FOR T/O SHIFT WITHOUT C/O. HAS TOLERATED PO WITHOUT N/V/D. PT PROVIDED WITH EDUCATION FOR HERNIA REPAIR. IVF CONTINUES AT 75ML/HR.
--- NOTE | 2024-02-16 19:40 | NUR ---
REPORT RECEIVED FROM DAY SHIFT RN. PT SITTING IN RECLINER ALERT AND ORIENTED. DENIES NEEDS. WHITE BOARD UPDATED. CALL LIGHT IN REACH.
--- NOTE | 2024-02-16 19:43 | NUR ---
PATIENT CALLED TO USE THE BATHROOM. SBA. IV POLE USED AN ASSISTIVE DEVICE. PATIENT VOIDED 375ML YELLOW URINE AND SMALL FORMED BOWEL MOVEMENT. PATIENT IS BACK IN CHAIR. NO OTHER NEEDS AT THIS TIME.
--- NOTE | 2024-02-16 20:19 | NUR ---
EVENING ASSESSMENT COMPLETE. SCHEDULED MEDS ADMIN PER EMAR. PT DENIES PAIN OR NAUSEA. BOWEL TONES ACTIVE. ABD SOFT. PT REPORTS FLATUS AND BM. TELE #[address] SR. HR LOW 60'S. 1+ EDEMA NOTED IN BLE. PT DENIES QUESTIONS OR CONCERNS. CALL LIGHT IN REACH.
--- NOTE | 2024-02-16 21:08 | NUR ---
PT UP TO BR WITH SBA TO VOID. BACK TO BED, DONALDO WELL. SCD'S IN PLACE. DISCUSSED NPO STATUS AT MIDNIGHT. PT VERBALIZES UNDERSTANDING. PER DISCUSSION WITH HOSPITALIST NIGHT DOSE OF METOPROLOL HELD FOR HR 50'S AT [facility]. PT DENIES FURTHER NEEDS. CALL LIGHT IN REACH.
--- NOTE | 2024-02-16 23:10 | NUR ---
SBA PATIENT USED THE BATHROOM VOIDED 300ML AND HAD ONE TURD SIZE BM PATIENT DECRIBED IT. PATIENT IS BACK IN BED. SCD ON. DENIES OTHER NEEDS.
[2024-02-17] VITALS (10 sets, daily range): BP systolic 134–172; BP diastolic 46–81
--- NOTE | 2024-02-17 00:47 | NUR ---
PT RESTING IN BED WITH EYES CLOSED. HOME CPAP IN PLACE. PT NPO SINCE MIDNIGHT. CALL LIGHT IN REACH.
--- NOTE | 2024-02-17 01:37 | NUR ---
CALL LIGHT ANSWERED. PT UP TO BR WITH MINIMAL SBA TO VOID. GAIT STEADY. BACK TO BED, DONALDO WELL. DENIES PAIN OR NAUSEA. VS OBTAINED. PT REMAINS NPO. IVF INFUSING PER ORDER. SCD'S IN PLACE. NO FURTHER NEEDS.
--- NOTE | 2024-02-17 03:28 | NUR ---
PT RESTING IN BED WITH EYES CLOSED. RESPIRATIONS EVEN. CALL LIGHT IN REACH.
--- NOTE | 2024-02-17 04:25 | NUR ---
CALL LIGHT ANSWERED. PT UP TO BR WITH SBA TO VOID. BACK TO BED, DONALDO WELL. VS AND I&O OBTAINED. PT DENIES PAIN OR NAUSEA. PT REMAINS NPO. SCD'S IN PLACE. NO FURTHER NEEDS. CALL LIGHT IN REACH.
--- NOTE | 2024-02-17 06:19 | NUR ---
PT UP TO BR WITH SBA TO VOID. BACK TO BED, DONALDO WELL. NO FURTHER NEEDS. CALL LIGHT IN REACH.
[2024-02-17] MEDS ORDERED: FAMOTIDINE 20 MG/ 2 ML VIAL ONE (06:32)
[2024-02-17] MEDS ORDERED: propofoL 200 MG/20 ML VIAL ONE ×5 (06:32→12:00)
[2024-02-17] MEDS ORDERED: ondansetron HCL 4 MG/2 ML VIAL ONE (06:32)
[2024-02-17] MEDS ORDERED: fentaNYL citrate 100 MCG/2 ML VIAL ONE (06:32)
[2024-02-17] MEDS ORDERED: METOCLOPRAMIDE HCL 10 MG/2 ML SDV ONE (06:32)
[2024-02-17] MEDS ORDERED: DEXAMETHASONE SOD PHOS 4 MG/ML VIAL ONE (06:32)
[2024-02-17] MEDS ORDERED: KETOROLAC TROMETHAMINE 30 MG/ML VIAL ONE (06:32)
[2024-02-17] MEDS ORDERED: LACTATED RINGER'S 1,000 ML IV ONE (06:32)
[2024-02-17] MEDS ORDERED: BUPIVACAINE HCL 0.25% 50 ML MDV ONE (06:38)
[2024-02-17] MEDS ORDERED: LIDOCAINE 1% W/ EPI 1:200,000 30 ML SDV ONE (06:39)
[2024-02-17] MEDS ORDERED: CEFAZOLIN SODIUM 2 GM/20 ML SYR IV SCH (07:00)
--- NOTE | 2024-02-17 07:50 | NUR ---
PT IS DOING WIPE DOWN. PT IS INDEPENDENT AND KNOWS TO CALL IF HE NEEDS ANY HELP. CHANGED PT LINENS, AND GOT HIM A NEW GOWNED AND SOCKS.
--- NOTE | 2024-02-17 08:58 | NUR ---
PT SITTING IN RECLINER WITH LEGS ELEVATED. PT ALERT AND ORIENTED X4. ASSESSMENT COMPLETE. CALL LIGHT WITHIN REACH.
--- NOTE | 2024-02-17 09:53 | NUR ---
PT SITTING IN RECLINER WITH LEGS ELEVATED VISITING WITH IN ROOOM. TALKED TO PT REGARDING POC FOR TODAY AND ANSWERED QUESTIONS. CALL LIGHT WITH REACH.
--- NOTE | 2024-02-17 10:05 | NUR ---
PT TO OR VIA BED AND OR STAFF.
--- NOTE | 2024-02-17 10:33 | NUR ---
IN SURGERY DEPARTMENT AT THIS TIME. UNABLE TO SEE PATIENT.
--- NOTE | 2024-02-17 10:49 | NUR ---
Upon entering the room Mr. Ramirez is found to be setting up in his chair with a book in his hand. He is oriented to person, place and time. His IMM letter is discussed with him, he answers questions appropriately. The IMM letter is explained to him, he is agreeable to discharge when ready but is questioning whether he wants to discharge to home or to a SNF for further rehab. He shares that he will discuss the rehab option with his when she comes into the hospital today. IMM letter signed per patient without reservation and Patient is provided a copy of the signed IMM letter.
--- NOTE | 2024-02-17 11:25 | NUR ---
PHYSICIAN NOTES PATIENT MAY BENEFIT FROM SNF. PATIENT NOTIFIED STAFF THIS AM HE IS CONSIDERING SNF. FAXED REFERRAL TO [facility] FOR REVIEW. WILL DISCUSS FURTHER WITH PATIENT WHEN HE IS AWAK POST OP.
[2024-02-17] MEDS ORDERED: IBLOOD GLUCOSE TEST STRIP 1 EA TEST VI PRN (11:30)
[2024-02-17] MEDS ORDERED: ondansetron HCL 4 MG/2 ML VIAL IV PRN (11:30)
[2024-02-17] MEDS ORDERED: droPERidol 5 MG/2 ML VIAL IV PRN (11:30)
[2024-02-17] MEDS ORDERED: PROCHLORPERAZINE EDISYLATE 10 MG/2 ML VIAL IV PRN (11:30)
[2024-02-17] MEDS ORDERED: fentaNYL citrate 50 MCG/ML SDV IV PRN (11:30)
[2024-02-17] MEDS ORDERED: METOCLOPRAMIDE HCL 10 MG/2 ML SDV IV PRN (11:30)
[2024-02-17] MEDS ORDERED: MORPHINE SULFATE 10 MG/ML VIAL IV PRN (11:30)
[2024-02-17] MEDS ORDERED: NALOXONE HCL 0.4 MG SYR IV PRN (11:30)
[2024-02-17] MEDS ORDERED: METOPROLOL TARTRATE 5 MG/5 ML VIAL ONE (11:49)
[2024-02-17] MEDS ORDERED: ETOMIDATE 40 MG/20 ML VIAL ONE (12:36)
--- NOTE | 2024-02-17 12:42 | NUR ---
02/17/24 1242 DANIEL HAAS 1227 PT ARRIVED TO PACU VIA STRECHER. PT HAS ORAL AIRWAY IN PLACE, PT MASK FOGGING AND CHEST RISING. PT ON 10 L OF OXYGEN VIA FACE MASK. 1230 OXYGEN REDUCED TO 6L/MIN VIA FACE MASK. PT OXYGEN SATURATION STAYING ABOVE 96%. 1238 PT AROUSED, ORAL AIRWAY REMOVED. PT ABLE TO SPEAK, PT DROWSEY AND FALLS BACK ASLEEP. PT REPORTS NO PAIN.
--- NOTE | 2024-02-17 12:52 | NUR ---
UR CONCURRENT REVIEW: MCG-HERNIA REPAIR ISC ADDED. PATINET TO OR TODAY [facility] INPT 02/13/24 DISCHARGE PENDING SURGICAL OUTCOME 02/19/24
--- NOTE | 2024-02-17 13:20 | NUR ---
PT TO ROOM FROM PACU. PT AWAKE, ALERT, AND PLEASANT. DENIES PAIN AT THIS TIME. PT HAS ICE TO R) GROIN AND GAUZE AND TAPE OVER SURGICAL SITE CDI. PT URINATED IN URINAL WITH SBA, TOLERATED WELL. CALL LIGHT WITHIN REACH.
--- NOTE | 2024-02-17 13:45 | NUR ---
PT AMBULATED TO RESTROOM WITH SBA, TOLERATED WELL. DENIES DIZZINESS OR LIGHTHEADEDNESS. URINATED WITHOUT DIFFIDULTY. PT TAKING SIPS OF WATER AND TOLERATING WELL. DENIES PAIN, DRSG CDI. ICE TO SITE. CALL LIGHT WITHIN REACH.
--- NOTE | 2024-02-17 13:52 | NUR ---
SPOKE WITH PATIENT. HE FEELS SAFE DISCHARGING HOME. STATES HE WOULD PREFER TO DO OUTPATIENT THERAPY AT [facility] OUTPATIENT THERAPY. PT NOTES, H&P, DC SUMMARY AND ORDER FOR OUTPATIENT PT FAXED TO DR. GODRFEY. JAIME AT [facility] CALLED AND LEFT MESSAGE THAT PATIENT IS WANTING TO DC TO HOME INSTEAD OF TO FACILITY.
[2024-02-17] MEDS ORDERED: OXYCODONE HCL5 MG PO (13:58)
[2024-02-17] MEDS ORDERED: COLACE100 MG PO (14:01)
--- NOTE | 2024-02-17 14:39 | NUR ---
PT RESTING IN BED WATCHING TV. SCDS ON, ICE ON R) GROIN. DRSG TO R) GROIN CDI. PT DENIES PAIN AT THIS TIME. CALL LIGHT WITHIN REACH.
--- NOTE | 2024-02-18 06:23 | DS ---
[facility] [address] [place], [place] [address] Signed ADMISSION DATE: 02/13/2024 DISCHARGE DATE: 02/17/2024 FINAL DIAGNOSES: 1. Right inguinal hernia. 2. Small bowel obstruction. PROCEDURES: 1. CT scan of abdomen and pelvis. 2. Chest x-rays. 3. Right inguinal Bassini herniorrhaphy. HISTORY OF PRESENT ILLNESS: Casie is an 83-year-old gentleman, who still lives at home with his who he two years ago. He gets around the house with his walker. Unfortunately, he falls somewhat frequently. He is on Eliquis for his atrial fibrillation. That seems to be concerning situation for him. He came in to the emergency room with a day of projectile vomiting and painful swelling in his right groin. His vital signs were fine. On exam, the ER doctor could not appreciate the inguinal hernia, but the CT scan confirmed small bowel in the right groin with some small bowel air-fluid levels along with fecalization. I have been asked to admit him overnight as a general surgeon on-call. HOSPITAL COURSE: Casie was admitted as above and treated conservatively with his NG tube and IV fluids. By morning, I was able to reduce his inguinal hernia. He did well after that and returned his GI function. He was able to progress to a regular diet. We held the Eliquis while he was here. We just took him down to surgery a few minutes ago for his right inguinal Bassini herniorrhaphy. He did well both intraop and postop. He will be going back to his room. He has been working with our physical therapist and ambulating around quite well with his four wheeled walker. He is hoping to go home today with his here in [place], [place]. DISCHARGE PLANS AND MEDICATIONS: Casie is going to be discharged to home with a prescription for oxycodone immediate release 5 mg tablets one p.o. q.6 hours p.r.n. severe postoperative pain. We will dispense 15 tablets with no refills. He can use Tylenol, ibuprofen, Aleve p.r.n. for [id number] postoperative pain. That can be purchased [id number]. He can have Colace 100 mg tablets one p.o. b.i.d. for two weeks. We will dispense 30 tablets with no refills. He can also use Dulcolax or MiraLAX p.r.n. for constipation. He can also purchase that [id number]. He is going to continue all his chronic medications at home, but he will hold the Eliquis until he follows up with his primary Electronically Signed By: BART STAFFORD MD 02/18/24 0623 PATIENT NAME: CASIE NUÑEZ DISCHARGE SUMMARY DATE OF : 36 REPORT #: [id number] PHYSICIAN: BART STAFFORD MD PCP: JASPREET GODFREY MD REPORT IS CONFIDENTIAL AND NOT TO BE RELEASED WITHOUT AUTHORIZATION [address] [address] Signed care provider here in about 7 to 14 days. Given his frequent falls and his advanced age, he might consider discontinuing as he has been in sinus rhythm his entire time here in the hospital. He will follow up in my office in about 7 to 14 days for surgical followup. He will remove the dressing tomorrow and shower and bathe as usual. He can use ice today and in the future as needed. I reviewed this with Casie and his . They have expressed understanding and agreed with the above plan. Bart Stafford MD ALB/MODL /[id number] cc: MD Jaspreet Avila MD Copies: BATR STAFFORD MD, RUSSEL J MD ~ Electronically Signed By: BART STAFFORD MD 02/18/24 0623 PATIENT NAME: CASIE NUÑEZ DISCHARGE SUMMARY DATE OF : 36 REPORT #: [id number] PHYSICIAN: BART STAFFORD MD PCP: JASPREET GODFREY MD REPORT IS CONFIDENTIAL AND NOT TO BE RELEASED WITHOUT AUTHORIZATION
--- NOTE | 2024-02-18 06:23 | OR ---
[facility] [address] [place], [place] [address] Signed DATE OF OPERATION: 02/17/2024 SURGEON: Bart Stafford MD PREOPERATIVE DIAGNOSIS: Reducible right inguinal hernia. POSTOPERATIVE DIAGNOSIS: Reducible right indirect inguinal hernia. PROCEDURES: Right Bassini inguinal herniorrhaphy. ESTIMATED BLOOD LOSS: None. INDICATIONS: Casie was an 83-year-old gentleman, who still lives at home with his , Yee, who remarried two years ago. Apparently they have known each other way back to their childhood. He gets around the house with his four wheeled walker. He said he has fallen a few times. He has also been on Eliquis for history of atrial fibrillation. He came in the emergency room with at least a 1-day history of projectile vomiting. His vital signs were fine. His white count was 11.7. Chest x-ray was unremarkable and the CT scan showed small bowel with air-fluid levels with some distal fecalization and then some small intestine up into his right inguinal hernia with transition. The ER doctor was not able to appreciate that on physical exam. I have been asked to admit him as a local general surgeon on-call. The next morning, the hernia had been reduced but the next day it did come out, I reduced it again and we did that several times during his hospital stay. He resolved a small bowel obstruction of course and we were able to discontinue his NG tube. He was eating and passing bowel movements and lots of flatus. His abdomen was completely benign. We let the Eliquis wear off and today we decided we would bring him down for his surgery. In the meantime, we did have our physical therapy folk see him as he was needing a little help. He said his walker at home was much better and they did bring that in for him. I reviewed with him the nature of an inguinal hernia. We discussed primary suture repair versus mesh repair. He understands there is a possibility he might need to go to a care home for a short time just for some physical therapy. Of course, he and his were hoping he gets to go home, which seems like he has headed in that direction. He understands expected intraop and postop course. There is risk including, but not limited to bleeding, infection, scarring, change in contour of the skin, damage to the nerves, ischemic orchitis, recurrent Electronically Signed By: BART STAFFORD MD 02/18/24 0623 PATIENT NAME: CASIE NUÑEZ OPERATIVE REPORT DATE OF : 36 REPORT #: [id number] PHYSICIAN: BART STAFFORD MD PCP: JASPREET THOMAS MD REPORT IS CONFIDENTIAL AND NOT TO BE RELEASED WITHOUT AUTHORIZATION [facility] [address] [place] [id number] Signed hernias and chronic pain. He had expressed understanding and wished to proceed. PROCEDURE IN DETAIL: I met with Casie and his in our preop area. We reviewed the above findings. We all agreed on the right groin. After this, Casie was taken back in the operating room and placed in the supine position. He was placed under general LMA anesthesia. He was given preoperative antibiotics along with SCDs in place. We did not give him any Lovenox as we had been holding his Eliquis. He was prepped and draped in the usual sterile fashion. After this, a standard oblique incision was made in the right groin and carried down to the tissue bluntly and with the cautery. We opened the external oblique fascia along its length and developed medially and laterally. We were able to visualize the iliohypogastric and ilioinguinal nerves and they were protected throughout the case. He had quite a bit of edema in his cord structures. It took a few minutes and we discovered that he had quite a bit of fat actually interposed through the pampiniform plexus. This is not a standard cord lipoma. This could not be stripped out. It also had quite a bit of edema. We eventually found his hernia sac on the anteromedial side of the deep ring. We followed it distally well pass the pubic tubercle. Once we had it completely from his cord structures, we opened it up and we looked inside and sure enough piece of small bowel was adherent to the side of the hernia sac. We took that down gently with our cautery and that allowed us to reduce the small bowel quite nicely into the abdomen. We then used 2-[address] a pursestring suture around the neck of the hernia sac at the deep ring. The distal portion of the hernia sac was amputated and passed off the field. After this we placed Allis clamps on his conjoined tendon and it came over without any tension whatsoever to the ilioinguinal ligament. Given his age and the laxity in his abdominal wall and the desire to recreate the deep ring because it was so splayed out, we decided to perform a standard Bassini inguinal herniorrhaphy. We use #1 interrupted Prolenes starting at the pubic tubercle and we worked our way all the way of the deep ring to bring the conjoined tendon over to the ilioinguinal ligament. We tied these down individually. I could just place the tip of my index finger into the deep ring at the end of the case. Amazingly, there was just no tension on his abdominal wall given his laxity at his age. We injected local anesthetic into the operative field. The wound was irrigated and suctioned out until clear. We closed the external oblique fascia over the repair with a running 2-0 PDS suture. Mikki's fascia was reapproximated with a running 3-0 Monocryl suture. The dermis was reapproximated with interrupted 3-0 subcuticular Monocryl sutures. The skin edges reapproximated with running 5-0 fast absorbing plain gut suture. Dry gauze and tape were then applied. After this, Casie was awakened from his anesthesia, extubated in the OR, and taken to recovery room in stable condition. Electronically Signed By: BART STAFFORD MD 02/18/24 0623 PATIENT NAME: CASIE NUÑEZ OPERATIVE REPORT DATE OF : 36 REPORT #: [id number] PHYSICIAN: BART STAFFORD MD PCP: JASPREET THOMAS MD REPORT IS CONFIDENTIAL AND NOT TO BE RELEASED WITHOUT AUTHORIZATION [address] [address] Signed Bart Stafford MD [facility] /[id number] cc: Bart Stafford MD [place], [place] Jaspreet Thomas MD Copies: BART STAFFORD MD, RUSSEL J MD ~ Electronically Signed By: BART STAFFORD MD 02/18/24 0623 PATIENT NAME: NUÑEZCASIE ADRIANA OPERATIVE REPORT DATE OF : 36 REPORT #: [id number] PHYSICIAN: BART STAFFORD MD PCP: JASPREET THOMAS MD REPORT IS CONFIDENTIAL AND NOT TO BE RELEASED WITHOUT AUTHORIZATION
== END 2024-02-17 16:20 | disposition home or self-care (01) | DRG 352 ==
LOC: ED 00:20 → MS 02:29
PROVIDERS: Internal Medicine; ADMIT Colon & Rectal Surgery; ATTEND Colon & Rectal Surgery
PROC: 0DH67UZ Insertion of Feeding Device into Stomach, Via Natural or Artificial Opening (ICD-10-PCS; 2024-02-17)
PROC: 0YQ50ZZ Repair Right Inguinal Region, Open Approach (ICD-10-PCS; principal; 2024-02-17 11:00)
DX: K40.30 Unilateral inguinal hernia, with obstruction, without gangrene, not specified as recurrent (principal); I10 Essential (primary) hypertension; E78.5 Hyperlipidemia, unspecified; N40.0 Benign prostatic hyperplasia without lower urinary tract symptoms; F39 Unspecified mood [affective] disorder; G47.33 Obstructive sleep apnea (adult) (pediatric); I48.0 Paroxysmal atrial fibrillation; F32.A Depression, unspecified; F43.10 Post-traumatic stress disorder, unspecified; K21.9 Gastro-esophageal reflux disease without esophagitis; M54.2 Cervicalgia; M19.90 Unspecified osteoarthritis, unspecified site; Z79.01 Long term (current) use of anticoagulants; Z90.49 Acquired absence of other specified parts of digestive tract; Z79.899 Other long term (current) drug therapy; Z99.89 Dependence on other enabling machines and devices; Z85.828 Personal history of other malignant neoplasm of skin; Z98.890 Other specified postprocedural states
CPT/HCPCS: 00830; 36415; 71045; 74177; 80048; 80053; 81003; 83690; 83735; 84100; 84484; 85025; 85610; 85730; 93005; 93010; 94640; 94760; 97110; 97116; 97161; A9270; C1781; J0131; J0690; J1100; J1170; J1885; J2405; J2704; J2765; J3010; J7121; Q9967

== ENCOUNTER 2024-07-14 14:16 | Emergency (ER) | payer OTHER, MEDICARE ==
[~2024-07-14] VITALS: Ht 175.3 cm; Wt 80.7 kg
[~2024-07-14 14:16] MED LIST changes: +ACETAMINOPHEN500 MG PO; +AMLODIPINE-BEN1 EACH PO; +CALCIUM-MAGNES1 EAC4 PO; +CARBOXYMETHYLCE15 ML OU; +CHLORPHENIRAMINE4 MG PO; +CLONIDINE HCL0.1 MG PO; +COLACE100 MG PO; +COSOPT EYE DROP10 ML OU; +CYCLOBENZAPRINE10 MG PO; +DAPSONE25 MG PO; +FISH OIL 1,001000 MG PO; +FLONASE ALLERG9.9 ML NAS; +FLUOCINONIDE15 G1 TOP; +FOLIC ACID1 MG PO; +FUROSEMIDE20 MG PO; +GENTEAL SEVERE10 GM OD; +LOVASTATIN40 MG PO; +LUBRICANT EYE D15 M3 OP; +MELATONIN5 M2 PO; +MEMANTINE HCL10 MG PO; +METOPROLOL TART25 MG PO; +MINERIN LOTION473 ML; +MULTI VITAMIN1 EACH PO; +MULTIVITAMINS1 EAC6 PO; +OMEPRAZOLE20 MG PO; +OXYCODONE HCL5 MG PO; +PRAZOSIN HCL1 MG PO; +PREVAGEN; +REFRESH PLUS1 EACH OPTH; +SERTRALINE HCL100 MG PO; +SUCRALFATE1 GM/10 ML PO; +TERAZOSIN HCL10 MG PO; +VENTOLIN HFA18 GM; +VITAMIN B650 MG PO; +XALATAN2.5 ML OPTH
[2024-07-14 15:18] LABS: BASOPHILS 0.4 % (0-2); EOSINOPHILS 2.1 % (0-6); HEMATOCRIT 35.6 % (35.0-50.0); HEMOGLOBIN 12.1 g/dL (12.0-18.0); LYMPHOCYTES 39.1 % (24-44); MCHC 34.1 g/dl (30-36); MCV 96.9 fl (81-99); NEUTROPHILS 51.4 % (39-80); PLATELET COUNT 157 K/uL (140-440); RBC 3.68 M/ul (4.3-5.7)
[2024-07-14 15:44] LABS: ALBUMIN 3.5 g/dL (3.4-5.0); ALBUMIN/GLOBULIN RATIO 1.4 (1.1-2.4); BILIRUBIN, TOTAL 0.6 mg/dL (0.2-1.0); BUN/CREATININE RATIO 22.68 (6.0-28.6); CALCIUM 8.8 mg/dL (8.5-10.1); CREATININE, SERUM 1.19 mg/dL (0.70-1.30); MAGNESIUM 2.1 mg/dL (1.8-2.4); TSH, 3RD GENERATION 1.673 uIU/mL (0.358-3.740)
[2024-07-14 18:57] VITALS: BP 130/58
--- NOTE | 2024-07-14 19:15 | EKG ---
[facility] [address] [place] [address] Signed Atrial fibrillation Right bundle branch block Left anterior fascicular block Bifascicular block Minimal voltage criteria for LVH, may be normal variant ( R in aVL ) Abnormal ECG When compared with ECG of 13-FEB-2024 06:20, Atrial fibrillation has replaced Sinus rhythm Vent. rate has decreased BY 50 BPM Confirmed by Kumar Rosario MD ([id number]) on 07/14/2024 7:14:49 PM Electronically Signed By: KUAMR ROSARIO MD 07/14/241914 PATIENT NAME: CASIE NUÑEZ Electrocardiogram DATE OF : 36 PHYSICIAN: KUMAR ROSARIO MD REPORT #: [id number] REPORT IS CONFIDENTIAL AND NOT TO BE RELEASED WITHOUT AUTHORIZATION
== END 2024-07-14 18:59 | disposition home or self-care (01) ==
LOC: ED 14:16
PROVIDERS: Emergency Medicine
DX: I95.9 Hypotension, unspecified (principal); R42 Dizziness and giddiness; I48.91 Unspecified atrial fibrillation; I10 Essential (primary) hypertension; G47.30 Sleep apnea, unspecified; Z90.49 Acquired absence of other specified parts of digestive tract; Z91.018 Allergy to other foods; Z91.048 Other nonmedicinal substance allergy status; Z79.899 Other long term (current) drug therapy
CPT/HCPCS: 36415; 71045; 80053; 83735; 83880; 84443; 84484; 85025; 93005; 93010; 99284-25

== ENCOUNTER 2024-11-06 13:00 | Emergency (ER) | payer OTHER, MEDICARE ==
[~2024-11-06] VITALS: Ht 175.3 cm; Wt 84.1 kg
[2024-11-06] MEDS ORDERED: ALBUTEROL/IPRATROPIUM 3 ML NEB INH ONE (14:00)
[2024-11-06] MEDS ORDERED: PREDNISONE20 MG PO (16:08)
[2024-11-06] MEDS ORDERED: predniSONE 20 MG TAB PO ONE (16:15)
[2024-11-06 16:18] VITALS: BP 145/70
== END 2024-11-06 16:18 | disposition home or self-care (01) ==
LOC: ED 13:00
DX: J06.9 Acute upper respiratory infection, unspecified (principal); J98.01 Acute bronchospasm; I10 Essential (primary) hypertension; I48.91 Unspecified atrial fibrillation; G47.33 Obstructive sleep apnea (adult) (pediatric); Z88.8 Allergy status to other drugs, medicaments and biological substances; Z79.899 Other long term (current) drug therapy
CPT/HCPCS: 71046; 99283-25; J7512